=== PATIENT | male | born 1985 | race Caucasian/White ===

== ENCOUNTER 2019-05-15 08:46 | Emergency (ER) | payer BC ==
[2019-05-15 09:56] LABS: BLOOD UREA NITROGEN,BUN 7 mg/dL (7.0-18.0); CARBON DIOXIDE,CO2 29.3 mmol/L (21.0-32.0); CHLORIDE,CL 102 mmol/L (98-107); GLUCOSE RANDOM 96 mg/dL (74-106); POTASSIUM,K 3.9 mmol/L (3.5-5.1); SODIUM,NA 139 mmol/L (136-148)
--- NOTE | 2019-05-15 10:21 | EDM.PDOC ---
ED HPI GENERAL MEDICAL PROBLEM - General Chief Complaint: Chest Pain Stated Complaint: CHEST PAIN Time Seen by Provider: 05/15/19 10:13 Source of Information: Reports: Patient History Limitations: Reports: No Limitations - History of Present Illness INITIAL COMMENTS - FREE TEXT/NARRATIVE: Patient is a 33-year-old male who states he was having some chest pressure that started approximately 5 PM yesterday and only lasted for 5 to 10 minutes. Patient was not short of breath nauseous or diaphoretic at that time. Patient was not feeling well and went to sleep out in his vehicle while at work at that time. Patient states during the night he had an episode of diaphoresis and felt diaphoretic this morning. Patient has no exertional symptoms. He denies any bloody or tarry looking stools. He denies having any swelling or pain to his calves or ankles. He has not had similar symptoms in the past. Today patient is having some chest discomfort on the left lower chest which he describes as sharp and stabbing and does have some pain that radiates to his jaw. Patient is having this currently but is not diaphoretic or short of breath in the department. He has no pleuritic pain. Patient has a strong family history of coronary disease with his sister having a myocardial infarction when she was 39. He has no history of diabetes, high blood pressure or hypercholesterolemia. Duration: Day(s): (2) Location: Reports: Chest Quality: Reports: Pressure, Sharp, Stabbing Severity: Severe Improves with: Reports: None Worsens with: Reports: None. Denies: Movement Context: Denies: Activity Associated Symptoms: Reports: Chest Pain, Malaise, Shortness of Breath chest Pain Score (Numeric/FACES): 3 - Related Data Allergies Allergy/AdvReac Type Severity Reaction Status Date / Time No Known Allergies Allergy Verified 05/15/19 09:18 Home Meds: Home Meds . [No Known Home Meds] 05/15/19 [History] Past Medical History Psychiatric History: Reports: Anxiety, Bipolar, Depression - Infectious Disease History Infectious Disease History: Reports: None Social & Family History - Family History Cardiac: Reports: Pacemaker - Tobacco Use Smoking Status *Q: Current Every Day Smoker Years of Tobacco use: 18 Packs/Tins Daily: 1 - Caffeine Use Caffeine Use: Reports: Coffee - Recreational Drug Use Recreational Drug Use: No ED ROS GENERAL - Review of Systems Review Of Systems: Comprehensive ROS is negative, except as noted in HPI. ED EXAM, GENERAL - Physical Exam Exam: See Below Exam Limited By: No Limitations General Appearance: Alert, No Apparent Distress Head: Atraumatic, Normocephalic Neck: Normal Inspection, Non-Tender Respiratory/Chest: No Respiratory Distress, Lungs Clear, Normal Breath Sounds Cardiovascular: Regular Rate, Rhythm, No Edema, No JVD GI/Abdominal: Normal Bowel Sounds, Soft, Non-Tender, No Organomegaly Back Exam: Normal Inspection Extremities: Normal Inspection, No Pedal Edema Neurological: Alert, Oriented, Normal Cognition Psychiatric: Normal Affect, Normal Mood Skin Exam: Warm, Dry EKG INTERPRETATION Rhythm: NSR P-Wave: Present QRS: Normal ST-T: Normal Course - Vital Signs Last Recorded V/S: Last Vital Signs Temp 36.2 C 05/15/19 09:18 Pulse 56 L 05/15/19 13:15 Resp 15 05/15/19 13:15 BP 107/76 05/15/19 13:15 Pulse Ox 100 05/15/19 13:15 - Orders/Labs/Meds Orders: Active Orders 24 hr Category Date Time Status EKG 12 Lead [EKG Documentation Completion] [RC] STAT Care 05/15/19 09:56 Active Sodium Chloride 0.9% [Saline Flush] Med 05/15/19 10:22 Active 10 ml FLUSH ASDIRECTED PRN Sodium Chloride 0.9% [Saline Flush] Med 05/15/19 10:22 Active 2.5 ml FLUSH ASDIRECTED PRN Saline Lock Insert [OM.PC] Stat Oth 05/15/19 10:22 Ordered Medication Orders Sodium Chloride (Saline Flush) 10 ml FLUSH ASDIRECTED PRN PRN Reason: Keep Vein Open Last Admin: 05/15/19 10:38 Dose: 10 ml Sodium Chloride (Saline Flush) 2.5 ml FLUSH ASDIRECTED PRN PRN Reason: Keep Vein Open Last Admin: 05/15/19 10:38 Dose: 2.5 ml Labs: Laboratory Tests 05/15/19 05/15/19 05/15/19 Range/Units 08:55 08:55 08:55 WBC 9.91 (4.0-11.0) K/uL RBC 4.99 (4.50-5.90) M/uL Hgb 15.1 (13.0-17.0) g/dL Hct 44.4 (38.0-50.0) % MCV 89.0 (80.0-98.0) fL MCH 30.3 (27.0-32.0) pg MCHC 34.0 (31.0-37.0) g/dL RDW Std Deviation 40.6 (28.0-62.0) fl RDW Coeff of Nikki 13 (11.0-15.0) % Plt Count 242 (150-400) K/uL MPV 12.20 H (7.40-12.00) fL Neut % (Auto) 50.0 (48.0-80.0) % Lymph % (Auto) 37.0 (16.0-40.0) % [place] % (Auto) 10.3 (0.0-15.0) % Eos % (Auto) 2.4 (0.0-7.0) % Baso % (Auto) 0.3 (0.0-1.5) % Neut # (Auto) 5.0 (1.4-5.7) K/uL Lymph # (Auto) 3.7 H (0.6-2.4) K/uL [place] # (Auto) 1.0 H (0.0-0.8) K/uL Eos # (Auto) 0.2 (0.0-0.7) K/uL Baso # (Auto) 0.0 (0.0-0.1) K/uL Nucleated RBC % 0.0 /100WBC Nucleated RBCs # 0 K/uL D-Dimer, Quantitative 1.27 H (0.0-0.50) mg/L FEU Sodium 139 (136-148) mmol/L Potassium 3.9 (3.5-5.1) mmol/L Chloride 102 (98-107) mmol/L Carbon Dioxide 29.3 (21.0-32.0) mmol/L BUN 7 (7.0-18.0) mg/dL Creatinine 1.3 (0.8-1.3) mg/dL Est Cr Clr Drug Dosing 89.56 mL/min Estimated GFR (MDRD) > 60.0 ml/min Glucose 96 (74-106) mg/dL Calcium 8.8 (8.5-10.1) mg/dL Total Bilirubin 0.4 (0.2-1.0) mg/dL AST 26 (15-37) IU/L ALT 28 (14-63) IU/L Alkaline Phosphatase 103 (46-116) U/L Troponin I < 0.050 (0.000-0.056) ng/mL Total Protein 7.7 (6.4-8.2) g/dL Albumin 4.4 (3.4-5.0) g/dL Globulin 3.3 (2.6-4.0) g/dL Albumin/Globulin Ratio 1.3 (0.9-1.6) Lipase (73-393) U/L 05/15/19 Range/Units 08:55 WBC (4.0-11.0) K/uL RBC (4.50-5.90) M/uL Hgb (13.0-17.0) g/dL Hct (38.0-50.0) % MCV (80.0-98.0) fL MCH (27.0-32.0) pg MCHC (31.0-37.0) g/dL RDW Std Deviation (28.0-62.0) fl RDW Coeff of Nikki (11.0-15.0) % Plt Count (150-400) K/uL MPV (7.40-12.00) fL Neut % (Auto) (48.0-80.0) % Lymph % (Auto) (16.0-40.0) % [place] % (Auto) (0.0-15.0) % Eos % (Auto) (0.0-7.0) % Baso % (Auto) (0.0-1.5) % Neut # (Auto) (1.4-5.7) K/uL Lymph # (Auto) (0.6-2.4) K/uL [place] # (Auto) (0.0-0.8) K/uL Eos # (Auto) (0.0-0.7) K/uL Baso # (Auto) (0.0-0.1) K/uL Nucleated RBC % /100WBC Nucleated RBCs # K/uL D-Dimer, Quantitative (0.0-0.50) mg/L FEU Sodium (136-148) mmol/L Potassium (3.5-5.1) mmol/L Chloride (98-107) mmol/L Carbon Dioxide (21.0-32.0) mmol/L BUN (7.0-18.0) mg/dL Creatinine (0.8-1.3) mg/dL Est Cr Clr Drug Dosing mL/min Estimated GFR (MDRD) ml/min Glucose (74-106) mg/dL Calcium (8.5-10.1) mg/dL Total Bilirubin (0.2-1.0) mg/dL AST (15-37) IU/L ALT (14-63) IU/L Alkaline Phosphatase (46-116) U/L Troponin I < 0.050 (0.000-0.056) ng/mL Total Protein (6.4-8.2) g/dL Albumin (3.4-5.0) g/dL Globulin (2.6-4.0) g/dL Albumin/Globulin Ratio (0.9-1.6) Lipase 123 (73-393) U/L Meds: Medications Generic Name Dose Route Start Last Admin Trade Name Freq PRN Reason Stop Dose Admin Sodium Chloride 10 ml 05/15/19 10:22 05/15/19 10:38 Saline Flush FLUSH 10 ml ASDIRECTED PRN Administration Keep Vein Open Sodium Chloride 2.5 ml 05/15/19 10:22 05/15/19 10:38 Saline Flush FLUSH 2.5 ml ASDIRECTED PRN Administration Keep Vein Open Discontinued Medications Generic Name Dose Route Start Last Admin Trade Name Freq PRN Reason Stop Dose Admin Aspirin 324 mg 05/15/19 10:22 05/15/19 10:38 Aspirin PO 05/15/19 10:23 324 mg ONETIME ONE Administration Iopamidol 100 ml 05/15/19 12:53 05/15/19 12:54 Isovue-370 (76%) IVPUSH 05/15/19 12:54 100 ml ONETIME ONE Administration Ketorolac Tromethamine 30 mg 05/15/19 10:22 05/15/19 10:38 Toradol IVPUSH 05/15/19 10:23 30 mg ONETIME ONE Administration - Re-Assessments/Exams Free Text/Narrative Re-Assessment/Exam: 05/15/19 14:19 Patient's troponin is negative. I feel this is significant because he has been having chest discomfort for over 2 days. Patient's d-dimer was elevated at 1.[address] scan of his chest shows him to have no pulmonary embolus but he does have findings consistent with bronchitis. I will start him on antibiotic for this reason. We will not try to arrange for a stress test this week since patient is leaving the state tomorrow to go back home and I have instructed him he needs to contact his PCP for a stress test this week. He is instructed to return to emergency department if having any exertional symptoms or is feeling worse. Departure - Departure Time of Disposition: 14:20 Disposition: Home, Self-Care 01 Condition: Good Clinical Impression: Atypical chest pain, Bronchitis Instructions: Nonspecific Chest Pain, [id number], Exercise Stress Test Referrals: PCP,None [Primary Care Provider] - Forms: ED Department Discharge Additional Instructions: Follow-up with electronic bench technician for a stress test this week if possible. Return to ER if symptoms are worse or any exertional chest pain. 1 aspirin a day until seen by electronic bench technician. Zithromax as prescribed for bronchitis. The following information is given to patients seen in the emergency department who are being discharged to home. This information is to outline your options for follow-up care. We provide all patients seen in our emergency department with a follow-up referral. The need for follow-up, as well as the timing and circumstances, are variable depending upon the specifics of your emergency department visit. If you don't have a primary care physician on staff, we will provide you with a referral. We always advise you to contact your personal physician following an emergency department visit to inform them of the circumstance of the visit and for follow-up with them and/or the need for any referrals to a consulting specialist. The emergency department will also refer you to a specialist when appropriate. This referral assures that you have the opportunity for follow-up care with a specialist. All of these measure are taken in an effort to provide you with optimal care, which includes your follow-up. Under all circumstances we always encourage you to contact your private physician who remains a resource for coordinating your care. When calling for follow-up care, please make the office aware that this follow-up is from your recent emergency room visit. If for any reason you are refused follow-up, please contact the [facility] Emergency Department at and asked to speak to the emergency department charge nurse. Sepsis Event Note - Evaluation Sepsis Screening Result: No Definite Risk - Focused Exam Vital Signs: Vital Signs Temp Pulse Pulse Resp BP BP Pulse Ox 05/15/19 13:15 56 L 15 107/76 100 05/15/19 12:03 58 L 13 94/73 95 05/15/19 11:17 58 L 15 116/79 97 05/15/19 10:30 62 14 124/86 99 05/15/19 09:23 63 15 118/84 98 05/15/19 09:18 36.2 C 65 16 141/97 H 99 Date Exam was Performed: 05/15/19 Time Exam was Performed: 14:15 - My Orders Last 24 Hours: My Active Orders 05/15/19 09:56 EKG 12 Lead [EKG Documentation Completion] [RC] STAT 05/15/19 10:22 Sodium Chloride 0.9% [Saline Flush] 10 ml FLUSH ASDIRECTED PRN Sodium Chloride 0.9% [Saline Flush] 2.5 ml FLUSH ASDIRECTED PRN Saline Lock Insert [OM.PC] Stat - Assessment/Plan Last 24 Hours: My Active Orders 05/15/19 09:56 EKG 12 Lead [EKG Documentation Completion] [RC] STAT 05/15/19 10:22 Sodium Chloride 0.9% [Saline Flush] 10 ml FLUSH ASDIRECTED PRN Sodium Chloride 0.9% [Saline Flush] 2.5 ml FLUSH ASDIRECTED PRN Saline Lock Insert [OM.PC] Stat
[2019-05-15] MEDS ORDERED: Sodium Chloride 0.9% 10 ML Syringe FLUSH PRN (10:22)
[2019-05-15] MEDS ORDERED: Sodium Chloride 0.9% 2.5 ML Syringe FLUSH PRN (10:22)
[2019-05-15] MEDS ORDERED: Aspirin 81 MG Tab.Chew PO ONE (10:22)
[2019-05-15] MEDS ORDERED: Ketorolac 30 MG/ML SDV IVPUSH ONE (10:22)
[2019-05-15 10:46] LABS: LIPASE 123 U/L (73-393)
--- NOTE | 2019-05-15 11:10 | CR ---
INDICATION: Chest pain TECHNIQUE: Chest radiograph 3 views COMPARISON: None FINDINGS: Mediastinum: The mediastinum is normal in appearance. The heart silhouette is normal in size and morphology. Lung: Both lungs are unremarkable in appearance. No sign of pleural effusion seen. No pneumothorax is identified. Bone and Soft tissue: Unremarkable for age. IMPRESSION: 1. No acute cardiopulmonary disease is seen. Dictated by: Karlos Hernandez MD @ 05/15/2019 11:09:28 (Electronically Signed)
[2019-05-15] MEDS ORDERED: Iopamidol 755 Mg/ML 100 ML Bottle IVPUSH ONE (12:53)
--- NOTE | 2019-05-15 13:41 | CT ---
INDICATION: Chest pain with elevated D-dimer. COMPARISON: 05/15/2019 chest x-ray. TECHNIQUE: CT angiography of the chest, PE protocol. 100 cc of Isovue-370 was administered. FINDINGS: No filling defect to indicate acute PE. No pericardial effusion. Heart size is within normal limits. No lymphadenopathy identified in the chest. Punctate calcified granuloma in the spleen. Imaged upper abdomen is otherwise unremarkable. Sclerotic bone island is noted and right lateral 5th rib (series 401 image [id number]). Calcified granuloma in the left lower lobe. No focal lung consolidation, pleural effusion or pneumothorax. Mucus/aspirated secretions in the trachea (series 402 image [id number]). Mild bronchial wall thickening. No suspicious pulmonary nodule or mass. IMPRESSION: 1. No evidence of acute PE. 2. Mild bronchial wall thickening which can be seen with bronchitis. 3. Mucous/aspirated secretions in the trachea. Please note that all CT scans at this facility use dose modulation, iterative reconstruction, and/or weight-based dosing when appropriate to reduce radiation dose to as low as reasonably achievable. Dictated by Andi Moreno MD @ May 15 2019 1:32PM Signed by Dr. Andi Moreno @ May 15 2019 1:39PM
== END 2019-05-15 14:44 | disposition home or self-care (01) ==
LOC: MW.ED 08:46
DX: J40 Bronchitis, not specified as acute or chronic (principal); F17.210 Nicotine dependence, cigarettes, uncomplicated
CPT/HCPCS: 36415; 71046; 71275; 80053; 83690; 84484; 85025; 85379; 93005; 96374; 99285; A9270; J1885; Q9967; 99284